=== PATIENT | male | born 1980 | race Caucasian/White ===

== ENCOUNTER 2019-12-11 12:56 | Emergency (ER) | payer OTHER, SELFPAY ==
[2019-12-11 13:26] VITALS: BP 111/71; PULSE 102; RESP 18; TEMP 37; O2SAT 97; BMI 30.7
--- NOTE | 2019-12-11 13:34 | XRR_ITS ---
PROCEDURE INFORMATION: Exam: XR Right Hip with Pelvis when Performed Exam date and time: 12/11/2019 1:36 PM Age: 39 years old Clinical indication: Pain and injury or trauma; Fall; Initial encounter; Blunt trauma (contusions or hematomas); Hip pain; Right hip TECHNIQUE: Imaging protocol: XR Right hip with pelvis when performed. Views: 1 view. COMPARISON: No relevant prior studies available. FINDINGS: Bones/joints: There is a nondisplaced fracture through the right inferior pubic ramus. No dislocation. Soft tissues: Unremarkable. XR/XR hip RT 2-3V wo/w pel* [id number] IMPRESSION: There is a nondisplaced fracture through the right inferior pubic ramus.
--- NOTE | 2019-12-11 14:26 | ED_ITS ---
HPI - Fall General: Chief Complaint: Extremity Injury, Lower Stated Complaint: right hip pain Time Seen by Provider: 12/11/19 13:16 Source: patient Mode of arrival: ambulatory Limitations: no limitations History of Present Illness: HPI Narrative: Patient is a 39-year-old male presents to ED today with complaints of pain about his right hip. Patient tells me yesterday while walking he accidentally fell onto the right hip. Patient has been ambulatory since the event but with pain. No other injury sustained during the fall. complaint: fall Onset (ago): day(s) (yesterday) Fall from: standing Fall witnessed: no Place fall occurred: home Loss of consciousness: None Prolonged down time: no Symptoms prior to fall: none Context: tripped/slipped Location of injury - extremities: Right: thigh (hip) Associated symptoms-after fall: Denies chest pain or neck pain Review of Systems Card: Denies: chest pain Resp: Denies: dyspnea Musc: Reports: joint pain (R hip); Denies: neck pain, back pain, extremity pain, extremity swelling or joint swelling Neuro: Denies: numbness in extremities, weakness in extremities or sensory changes [facility] ED PFSH: Social History (Updated 12/11/19 @ 13:32 by Jack Yi RN) Smoking and tobacco status: current every day smoker Alcohol intake: current Alcohol intake frequency: few times a week Substance/Drug Use: current Substance/Drug use frequency: daily Substance/Drug use type: Marijuana Physical Exam Const: COMMON NORMALS: no acute distress, average body habitus, patient oriented x3, no limitations, healthy appearing, alert and well nourished Back/Pelvis: COMMON NORMALS: thoracic and lumbar spine normal to inspection, no thoracic nor lumbar tenderness and thoraco-lumbar ROM normal PELVIS: Yes Other pelvic findings (TTP R buttock/R posterior thigh) SACROILIAC JOINTS: Yes SI joints normal COCCYX: Other pelvic findings (TTP R buttock/R posterior thigh) Extremity: COMMON NORMALS: normal to inspection and full ROM GENERAL: Yes normal exam except as noted RIGHT LOWER EXTREMITY: Yes hip joint Right hip: Yes palpation (TTP posterior ) Neuro: COMMON NORMALS: patient oriented x3, moves all extremities, no focal motor deficits and no sensory deficits noted SENSORIUM/ORIENTATION: Yes alert Skin: COMMON NORMALS: no rashes or lesions noted GENERAL SKIN EXAM: no rashes or lesions noted Course Vital Signs: Vital signs: Vital Signs Temperature 98.6 F 12/11/19 13:26 Pulse Rate 97 12/11/19 14:54 Respiratory Rate 18 12/11/19 14:54 Blood Pressure 124/79 12/11/19 14:54 Pulse Oximetry 98 12/11/19 14:54 MDM - Fall MDM Narrative: Medical decision making narrative: XRs were originally interpreted by myself and I mistakenly read them as normal. Later vrad report sh owed a small non-displaced fx through his R inferior ramus. Spoke to Dr. Marley who said this is non-surgical and pt can be weight bearing as tolerated. Patient was contacted by myself and we went over XR findings. Patient was initially discharged with a diagnosis of R hip contusion and placed on muscle relaxers and steroids. I have changed diagnosis to reflect his fracture and will treat him with pain medications. [facility]. Weight bearing as tolerated. Patient verbalized understanding and returned to ED for new discharge paperwork and prescription. Imaging Data^: R hip/pelvis XR: Radiologist's impression: [address] [place] [address] XRay Report Signed Patient: Jose Sanches Unit #: [id number] : 1980 Acct#:[id number] Age/Sex: 39 / M ADM Date: 12/11/19 Loc: ER Room/Bed: Attending Dr: Ordering Provider/Ordering MD: Tanvir Marley DO Date of Service: 12/11/19 Procedure(s): XR hip RT 2-3V wo/w pel* [id number] Accession Number(s): [id number] Report Number: [id number] PROCEDURE INFORMATION: Exam: XR Right Hip with Pelvis when Performed Exam date and time: 12/11/2019 1:36 PM Age: 39 years old Clinical indication: Pain and injury or trauma; Fall; Initial encounter; Blunt trauma (contusions or hematomas); Hip pain; Right hip TECHNIQUE: Imaging protocol: XR Right hip with pelvis when performed. Views: 1 view. COMPARISON: No relevant prior studies available. FINDINGS: Bones/joints: There is a nondisplaced fracture through the right inferior pubic ramus. No dislocation. Soft tissues: Unremarkable. XR/XR hip RT 2-3V wo/w pel* [id number] IMPRESSION: There is a nondisplaced fracture through the right inferior pubic ramus. Dictated By: Blake Storey MD Signed By: Blake Storey MD Signed Date/Time: 12/11/19 1502 DD/ 1501 Discharge Plan Discharge Patient Disposition: Home Clinical Impression: Fall as cause of accidental injury at home as place of occurrence Qualifiers: Encounter type: initial encounter Qualified Code(s): W19.XXXA - Unspecified fall, initial encounter Closed fracture of right inferior pubic ramus Qualifiers: Encounter type: initial encounter Qualified Code(s): S32.591A - Other specified fracture of right pubis, initial encounter for closed fracture Condition: Stable Prescriptions: New cyclobenzaprine 10 mg tablet 10 mg PO TID Qty: 14 RF: 0 Medrol (Robert) 4 mg tablets,dose pack See Rx Instructions .ROUTE .COMPLEX Qty: 21 RF: 0 hydrocodone-acetaminophen 5-325 mg tablet 1 tab PO Q6H PRN (Reason: pain) Qty: 20 RF: 0 No Action Doans Pills See Rx Instructions .ROUTE .COMPLEX RF: 0 prazosin See Rx Instructions .ROUTE .COMPLEX RF: 0 venlafaxine 1 tab PO DAILY RF: 0 Active-Pac See Rx Instructions .ROUTE .COMPLEX RF: 0 Aleve 220 mg Tablet 220 mg PO BID PRN (Reason: Pain) RF: 0 Discharge Orders: Discharge Order (Routine); Ordered 12/11/19 Ordered By: Kandy Ashley Referrals: [facility] [Primary Care Provider] - Activity Restrictions/Additional Instructions: You may continue to be weight bearing as tolerated. [facility]. Return to the emergency department for worsening severe pain uncontrolled with your pain medications. Discharge Date/Time: 12/11/19 14:54 Coding Level of Care Code ED Life Support Technician for [facility]
[2019-12-11] MEDS: dexamethasone 10 mg/mL INJ 8 MG IM (14:48)
[2019-12-11] MEDS: ketorolac 60 mg/2 mL INJ IM (14:49)
[2019-12-11 14:54] VITALS: BP 124/79; PULSE 97; RESP 18; O2SAT 98
--- NOTE | 2019-12-11 16:19 | PC.NURSE ---
Pt was called after discharge to be notified of finalized radiology report. Pt came back to get new discharge instructions and prescriptions, pt seen by MARTIN Martin. Pt verbalizes understanding and signed new DC papers.
== END 2019-12-11 14:54 | disposition home or self-care (01) ==
PROVIDERS: Emergency Provider Physician Assistant
DX: S32.591A Other specified fracture of right pubis, initial encounter for closed fracture (principal); W19.XXXA Unspecified fall, initial encounter
CPT/HCPCS: 12345; 73502; 96372; 99282; 99283; J1100; J1885

== ENCOUNTER → 2020-01-23 14:12 | Outpatient (BNVA) | payer OTHER, SELFPAY | PROVIDERS: Referring Provider Nurse Practitioner; Visit Provider Specialist | DX: S62.623A Displaced fracture of middle phalanx of left middle finger, initial encounter for closed fracture (principal); W19.XXXA Unspecified fall, initial encounter | CPT/HCPCS: 73140 ==